=== PATIENT | female | born 1945 | race Two or more races ===

== ENCOUNTER 2021-06-10 11:43 | Inpatient (IN) | payer MEDICARE, MEDICAID ==
[~2021-06-10] VITALS: Ht 157.5 cm; Wt 69.9 kg
[2021-06-10] VITALS (20 sets, daily range): BP systolic 93–120; BP diastolic 33–75
[~2021-06-10 11:43] MED LIST: DEXTROSE 50% WATER 50ML SYRINGE IV ONE; ETOMIDATE 2MG/ML 10ML VIAL IV ONE
[2021-06-10] MEDS ORDERED: ETOMIDATE 2MG/ML 10ML VIAL IV ONE (12:00)
[2021-06-10] MEDS ORDERED: ROCURONIUM BROMIDE 10MG/ML VIAL 5ML IV ONE (12:00)
[2021-06-10] MEDS ORDERED: DEXTROSE 50% WATER 50ML SYRINGE IV ONE (12:00)
[2021-06-10] MEDS ORDERED: PROPOFOL 10MG/ML 100ML 100 ML IV ONE (12:00)
[2021-06-10] MEDS ORDERED: IOHEXOL-350 100 ML BOTTLE ONE (12:05)
[2021-06-10 12:40] LABS: HEMATOCRIT. 24.1 % (36.0-48.0); HEMOGLOBIN. 7.9 g/dL (12.0-16.0); MEAN CORPUSCULAR HEMOGLOBIN 28.5 pg (28.0-32.0); MEAN CORPUSCULAR VOLUME 86.6 fL (81.0-99.0); MEAN PLATELET VOLUME 7.1 fl (7.4-10.4); PLATELET 203 x1000/uL (130-400); RED BLOOD CELL COUNT 2.78 mill/uL (4.2-5.4); RED CELL DISTRIBUTION WIDTH 14.6 % (11.6-14.6)
[2021-06-10 12:45] LABS: CHLORIDE 117 mEq/L (98-107)
[2021-06-10 12:53] LABS: ETHANOL BLOOD < 10 mg/dL
[2021-06-10 13:13] LABS: PLATELET ESTIMATE NORMAL
[2021-06-10 14:37] LABS: CLARITY URINE CLEAR (CLEAR); COLOR URINE YELLOW (YELLOW); KETONES URINE TRACE (NEGATIVE); LEUKOCYTE ESTERASE URINE NEGATIVE (NEGATIVE); NITRITE URINE NEGATIVE (NEGATIVE); OCCULT BLOOD URINE TRACE (NEGATIVE); PH URINE 5.5 (4.5-8.0); PROTEIN URINE TRACE (NEGATIVE); SPECIFIC GRAVITY URINE 1.028 (1.005-1.030); UROBILINOGEN URINE 0.2 E.U./dL (0.2-1.0)
[2021-06-10 15:04] LABS: *AMPHETAMINES SCREEN URINE NEGATIVE (NEGATIVE); *BARBITURATES SCREEN URINE NEGATIVE (NEGATIVE); CANNABINOID URINE SCREEN NEGATIVE (NEGATIVE)
[2021-06-10 15:05] LABS: *BENZODIAZEPINES SCREEN URINE NEGATIVE (NEGATIVE); *COCAINE SCREEN URINE NEGATIVE (NEGATIVE); METHADONE URINE SCREEN NEGATIVE (NEGATIVE); OPIATES URINE SCREEN NEGATIVE (NEGATIVE)
[2021-06-10 15:06] LABS: PHENCYCLIDINE URINE SCREEN NEGATIVE (NEGATIVE)
[2021-06-10] MEDS ORDERED: SODIUM CHLORIDE 0.9% 1000ML BAG (SEPSIS BOLUS) IV ONE (16:00)
[2021-06-10] MEDS ORDERED: PIPERACILLIN/TAZ 3.375G PREMIX 50 ML IV NR (16:00)
[2021-06-10] MEDS ORDERED: SODIUM CHLORIDE 0.9% 2,040 ML IV SCH (16:00)
[2021-06-10 16:08] LABS: BG BASE EXCESS -5.9 mmol/L (-2.0-2.0); BG CARBOXYHEMOGLOBIN 0.3 % (0.5-1.5); BG DEOXYHEMOGLOBIN 3.7 % (0.0-5.0); BG HCO3 ACT 19.1 mmol/L (22.0-26.0); BG METHEMOGLOBIN 0.3 % (0.0-1.5); BG OXYGEN SATURATION 96.3 % (92.0-98.5); BG OXYHEMOGLOBIN 95.7 % (94.0-97.0); BG PCO2 35.4 mmHg (35.0-45.0); BG PH 7.349 (7.350-7.450); BG PO2 90.5 mmHg (75.0-100.0); BG SAMPLE SITE RIGHT RADIAL; BG TOTAL HEMOGLOBIN 11.2 g/dL (12.0-18.0); BG VENT MODE VENT - AC
[2021-06-10] MEDS ORDERED: NOREPINEPHRINE 8MG/250ML PMX 250 ML IV PRN (17:15)
[2021-06-10] MEDS ORDERED: FENTANYL CITRATE/PF 1,000 MCG in SODIUM CHLORIDE 0.9% 80 ML IV PRN (17:30)
[2021-06-10] MEDS ORDERED: FENTANYL CITRATE 2,500 MCG in SODIUM CHLORIDE 0.9% 200 ML IV PRN (18:00)
[2021-06-10] MEDS ORDERED: ONDANSETRON HCL 4MG/2ML INJ IV PRN ×2 (20:15→21:30)
[2021-06-10] MEDS ORDERED: ACETAMINOPHEN 650MG/20.3ML UDC PO PRN (20:15)
[2021-06-10] MEDS ORDERED: DEXTROSE 50% WATER 50ML SYRINGE IV PRN (20:15)
[2021-06-10] MEDS ORDERED: NOREPINEPHRINE 8 MG in DEXTROSE 5% WATER 250 ML IV PRN (20:45)
[2021-06-10] MEDS: ENOXAPARIN 30MG/0.3ML SYR SUBCUT SCH (20:53)
[2021-06-10] MEDS: SODIUM CHLORIDE 0.45% 1,000 ML IV SCH (20:54)
[2021-06-10] MEDS: BLOOD SUGAR DIAGNOSTIC STRIP TEST SCH (20:54)
[2021-06-10] MEDS: INSULIN LISPRO 100 UNITS/ML SUBCUT SCH (20:54)
[2021-06-10] MEDS: PROPOFOL 10MG/ML 100ML 100 ML IV PRN (20:57)
[2021-06-10] MEDS ORDERED: HYDROCODONE/ACETAMINOPHEN 5/325MG TABLET PO PRN (21:30)
[2021-06-10] MEDS ORDERED: ENOXAPARIN 40MG/0.4ML SYR SUBCUT SCH (21:30)
[2021-06-10] MEDS ORDERED: ACETAMINOPHEN 325MG TABLET PO PRN (21:30)
[2021-06-10] MEDS ORDERED: NALOXONE HCL 0.4MG/ML VIAL IV PRN (22:00)
[2021-06-10] MEDS ORDERED: PIPERACILLIN/TAZOBACTAM 3.375 G in DEXTROSE 5% WATER 50 ML IV NR (23:00)
[2021-06-11] VITALS (66 sets, daily range): BP systolic 83–131; BP diastolic 27–83
[2021-06-11] MEDS ORDERED: VANCOMYCIN 1 G PREMIX 200 ML IV NR
[2021-06-11 01:07] LABS: CREATINE KINASE MB FRACTION 18.4 ng/mL (0.5-3.6)
[2021-06-11] MEDS: PIPERACILLIN/TAZOBACTAM 3.375 G in DEXTROSE 5% WATER 50 ML IV SCH ×3 (05:14→21:12)
[2021-06-11] MEDS: PROPOFOL 10MG/ML 100ML 100 ML IV PRN ×2 (05:30→20:23)
[2021-06-11 05:47] LABS: HEMATOCRIT. 22.1 % (36.0-48.0); HEMOGLOBIN. 7.3 g/dL (12.0-16.0); MEAN CORPUSCULAR HEMOGLOBIN 28.3 pg (28.0-32.0); MEAN CORPUSCULAR VOLUME 86.1 fL (81.0-99.0); MEAN PLATELET VOLUME 7.2 fl (7.4-10.4); PLATELET 188 x1000/uL (130-400); RED BLOOD CELL COUNT 2.57 mill/uL (4.2-5.4); RED CELL DISTRIBUTION WIDTH 14.6 % (11.6-14.6)
[2021-06-11 05:58] LABS: CHLORIDE 122 mEq/L (98-107)
[2021-06-11 06:09] LABS: CREATINE KINASE MB FRACTION 18.7 ng/mL (0.5-3.6)
[2021-06-11 06:18] LABS: CREATINE KINASE 1640 IU/L (26-192)
[2021-06-11] MEDS: BLOOD SUGAR DIAGNOSTIC STRIP TEST SCH ×4 (07:50→21:10)
[2021-06-11] MEDS: INSULIN LISPRO 100 UNITS/ML SUBCUT SCH ×4 (08:20→21:00)
[2021-06-11] MEDS: PANTOPRAZOLE SODIUM 40 MG/VIAL IV SCH (09:25)
[2021-06-11] MEDS: SODIUM CHLORIDE 0.45% 1,000 ML IV SCH (09:25)
[2021-06-11 10:27] LABS: BG BASE EXCESS -6.1 mmol/L (-2.0-2.0); BG CARBOXYHEMOGLOBIN 0.5 % (0.5-1.5); BG DEOXYHEMOGLOBIN 1.7 % (0.0-5.0); BG FRACTION INSPIRED OXYGEN 45; BG HCO3 ACT 18.5 mmol/L (22.0-26.0); BG METHEMOGLOBIN 0.1 % (0.0-1.5); BG OXYGEN SATURATION 98.3 % (92.0-98.5); BG OXYHEMOGLOBIN 97.7 % (94.0-97.0); BG PCO2 32.5 mmHg (35.0-45.0); BG PH 7.373 (7.350-7.450); BG PO2 117.5 mmHg (75.0-100.0); BG SAMPLE SITE RIGHT RADIAL; BG TOTAL HEMOGLOBIN 7.3 g/dL (12.0-18.0); BG VENT MODE VENT - AC
[2021-06-11 11:01] LABS: PLATELET ESTIMATE NORMAL
[2021-06-11 12:05] LABS: TOTAL IRON BINDING CAPACITY 214 ug/dL (250-450)
[2021-06-11] MEDS ORDERED: CARV25TA47 PO (12:13)
[2021-06-11] MEDS ORDERED: TICA60TA PO (12:14)
[2021-06-11] MEDS ORDERED: SIMV-46 PO (12:14)
[2021-06-11] MEDS ORDERED: HYDR-4134 PO (12:14)
[2021-06-11] MEDS ORDERED: ASPI-1497 PO (12:14)
[2021-06-11] MEDS ORDERED: LOSA25TA26 PO (12:14)
[2021-06-11] MEDS ORDERED: AMLO10TA80 PO (12:14)
[2021-06-11] MEDS ORDERED: INSU100I28 SQ (12:14)
[2021-06-11] MEDS ORDERED: CHOL400D7 PO (12:14)
[2021-06-11] MEDS: DEXT 5%/0.45% NACL 1000ML 1,000 ML IV SCH (13:59)
[2021-06-11] MEDS: THIAMINE HCL 100MG TABLET PO SCH (18:27)
[2021-06-11] MEDS: ENOXAPARIN 30MG/0.3ML SYR SUBCUT SCH (21:11)
[2021-06-11] MEDS: VANCOMYCIN 750 MG PREMIX 150 ML IV SCH (23:56)
[2021-06-12] VITALS (74 sets, daily range): BP systolic 97–155; BP diastolic 42–87
[2021-06-12] MEDS: DEXT 5%/0.45% NACL 1000ML 1,000 ML IV SCH ×2 (03:24→16:21)
[2021-06-12] MEDS: PROPOFOL 10MG/ML 100ML 100 ML IV PRN (03:30)
[2021-06-12 05:34] LABS: MEAN CORPUSCULAR HEMOGLOBIN 28.1 pg (28.0-32.0); MEAN PLATELET VOLUME 7.3 fl (7.4-10.4); PLATELET 158 x1000/uL (130-400); RED BLOOD CELL COUNT 2.47 mill/uL (4.2-5.4); RED CELL DISTRIBUTION WIDTH 14.2 % (11.6-14.6)
[2021-06-12 05:47] LABS: PROTHROMBIN TIME 10.5 sec (9.6-11.0)
[2021-06-12 05:51] LABS: HEMOGLOBIN. 6.9 g/dL (12.0-16.0)
[2021-06-12] MEDS: PIPERACILLIN/TAZOBACTAM 3.375 G in DEXTROSE 5% WATER 50 ML IV SCH ×3 (06:16→21:11)
[2021-06-12] MEDS ORDERED: POTASSIUM CHLORIDE 20MEQ/PACKET NG SCH (06:30)
[2021-06-12] MEDS: BLOOD SUGAR DIAGNOSTIC STRIP TEST SCH ×4 (07:05→21:51)
[2021-06-12] MEDS: INSULIN LISPRO 100 UNITS/ML SUBCUT SCH ×4 (07:09→21:58)
[2021-06-12] MEDS: THIAMINE HCL 100MG TABLET PO SCH (08:33)
[2021-06-12] MEDS: PANTOPRAZOLE SODIUM 40 MG/VIAL IV SCH ×2 (08:33→17:48)
[2021-06-12] MEDS: IPRATROPIUM/ALBUTEROL 0.5-3(2.5)MG/3ML NEB HHN PRN ×2 (08:36→16:18)
[2021-06-12 10:36] LABS: BG BASE EXCESS -6.4 mmol/L (-2.0-2.0); BG CARBOXYHEMOGLOBIN 0.3 % (0.5-1.5); BG FRACTION INSPIRED OXYGEN 40; BG METHEMOGLOBIN 0.5 % (0.0-1.5); BG OXYHEMOGLOBIN 97.2 % (94.0-97.0); BG PCO2 30.8 mmHg (35.0-45.0); BG PH 7.384 (7.350-7.450); BG PO2 122.5 mmHg (75.0-100.0); BG SAMPLE SITE RIGHT RADIAL; BG TOTAL HEMOGLOBIN 7.5 g/dL (12.0-18.0); BG VENT MODE VENT - AC
[2021-06-12] MEDS: FERROUS SULFATE 325MG TABLET PO SCH ×2 (12:34→17:48)
[2021-06-12 13:29] LABS: BG BASE EXCESS -7.2 mmol/L (-2.0-2.0); BG CARBOXYHEMOGLOBIN 0.3 % (0.5-1.5); BG DEOXYHEMOGLOBIN 2.7 % (0.0-5.0); BG FRACTION INSPIRED OXYGEN 40; BG HCO3 ACT 17.2 mmol/L (22.0-26.0); BG METHEMOGLOBIN 0.1 % (0.0-1.5); BG OXYGEN SATURATION 97.3 % (92.0-98.5); BG OXYHEMOGLOBIN 96.9 % (94.0-97.0); BG PCO2 30.5 mmHg (35.0-45.0); BG PH 7.369 (7.350-7.450); BG PO2 100.4 mmHg (75.0-100.0); BG SAMPLE SITE LEFT RADIAL; BG VENT MODE VENT - CPAP
[2021-06-12 15:24] LABS: PLATELET ESTIMATE NORMAL
[2021-06-12 15:45] LABS: HEMATOCRIT 25.9 % (36.0-48.0); HEMOGLOBIN 8.5 g/dL (12.0-16.0)
[2021-06-12] MEDS: ACETYLCYSTEINE 100MG/ML 10% VIAL 4ML INH SCH (16:18)
[2021-06-12] MEDS: VANCOMYCIN 750 MG PREMIX 150 ML IV SCH (23:53)
[2021-06-13] VITALS (43 sets, daily range): BP systolic 90–171; BP diastolic 24–83
[2021-06-13] MEDS: IPRATROPIUM/ALBUTEROL 0.5-3(2.5)MG/3ML NEB HHN PRN ×5 (00:52→20:24)
[2021-06-13] MEDS: ACETYLCYSTEINE 100MG/ML 10% VIAL 4ML INH SCH ×4 (00:52→20:23)
[2021-06-13 05:42] LABS: HEMATOCRIT. 24.4 % (36.0-48.0); HEMOGLOBIN. 8.1 g/dL (12.0-16.0); MEAN CORPUSCULAR HEMOGLOBIN 28.8 pg (28.0-32.0); MEAN CORPUSCULAR VOLUME 86.6 fL (81.0-99.0); MEAN PLATELET VOLUME 7.2 fl (7.4-10.4); PLATELET 166 x1000/uL (130-400); RED BLOOD CELL COUNT 2.82 mill/uL (4.2-5.4); RED CELL DISTRIBUTION WIDTH 14.5 % (11.6-14.6)
[2021-06-13] MEDS: DEXT 5%/0.45% NACL 1000ML 1,000 ML IV SCH (06:23)
[2021-06-13] MEDS: PIPERACILLIN/TAZOBACTAM 3.375 G in DEXTROSE 5% WATER 50 ML IV SCH ×3 (06:23→21:35)
[2021-06-13] MEDS: INSULIN LISPRO 100 UNITS/ML SUBCUT SCH ×4 (07:09→22:06)
[2021-06-13] MEDS: BLOOD SUGAR DIAGNOSTIC STRIP TEST SCH ×4 (07:13→21:55)
[2021-06-13 07:47] LABS: PLATELET ESTIMATE NORMAL
[2021-06-13] MEDS: PANTOPRAZOLE SODIUM 40 MG/VIAL IV SCH ×2 (08:01→17:06)
[2021-06-13] MEDS: FERROUS SULFATE 325MG TABLET PO SCH ×3 (08:01→17:30)
[2021-06-13] MEDS: THIAMINE HCL 100MG TABLET PO SCH (08:02)
[2021-06-13] MEDS ORDERED: CALCIUM GLUCONATE 1,000 MG in DEXT 5% WATER 90 ML IV ONE (11:00)
[2021-06-13] MEDS ORDERED: FUROSEMIDE 40MG/4ML VIAL IVP NR (11:45)
[2021-06-13] MEDS ORDERED: CALCIUM GLUCONATE 1GM PREMIX 50 ML IV NR (13:00)
[2021-06-13 13:37] LABS: BG BASE EXCESS -8.9 mmol/L (-2.0-2.0); BG CARBOXYHEMOGLOBIN 0.3 % (0.5-1.5); BG DEOXYHEMOGLOBIN 1.5 % (0.0-5.0); BG FRACTION INSPIRED OXYGEN 40; BG HCO3 ACT 15.8 mmol/L (22.0-26.0); BG METHEMOGLOBIN 0.4 % (0.0-1.5); BG OXYGEN SATURATION 98.5 % (92.0-98.5); BG OXYHEMOGLOBIN 97.8 % (94.0-97.0); BG PCO2 29.9 mmHg (35.0-45.0); BG PH 7.342 (7.350-7.450); BG PO2 147.7 mmHg (75.0-100.0); BG SAMPLE SITE RIGHT RADIAL; BG VENT MODE VENT - CPAP
[2021-06-13] MEDS ORDERED: SODIUM BICARBONATE 8.4% 1 MEQ/ML 50ML SYR IV NR (14:00)
[2021-06-13] MEDS: CEFAZOLIN 2,000 MG in DEXT 5% WATER 100 ML IV SCH ×2 (15:58→21:34)
[2021-06-13] MEDS ORDERED: HYDRALAZINE 20MG/ML VIAL IV PRN (16:30)
[2021-06-13] MEDS ORDERED: VANCOMYCIN 750 MG PREMIX 150 ML IV SCH (18:00)
[2021-06-14] VITALS (45 sets, daily range): BP systolic 117–158; BP diastolic 47–89
[2021-06-14] MEDS: PIPERACILLIN/TAZOBACTAM 3.375 G in DEXTROSE 5% WATER 50 ML IV SCH ×3 (05:42→21:04)
[2021-06-14] MEDS: CEFAZOLIN 2,000 MG in DEXT 5% WATER 100 ML IV SCH ×3 (05:42→21:04)
[2021-06-14 06:24] LABS: HEMATOCRIT. 24.1 % (36.0-48.0); MEAN CORPUSCULAR HEMOGLOBIN 28.7 pg (28.0-32.0); MEAN CORPUSCULAR VOLUME 86.4 fL (81.0-99.0); MEAN PLATELET VOLUME 7.2 fl (7.4-10.4); PLATELET 171 x1000/uL (130-400); RED CELL DISTRIBUTION WIDTH 14.5 % (11.6-14.6)
[2021-06-14] MEDS: BLOOD SUGAR DIAGNOSTIC STRIP TEST SCH ×4 (07:14→21:03)
[2021-06-14] MEDS: INSULIN LISPRO 100 UNITS/ML SUBCUT SCH ×4 (07:17→21:05)
[2021-06-14] MEDS: FERROUS SULFATE 325MG TABLET PO SCH ×3 (08:35→18:12)
[2021-06-14] MEDS: PANTOPRAZOLE SODIUM 40 MG/VIAL IV SCH ×2 (08:35→18:12)
[2021-06-14] MEDS: THIAMINE HCL 100MG TABLET PO SCH (08:36)
[2021-06-14 08:38] LABS: BG BASE EXCESS -1.3 mmol/L (-2.0-2.0); BG CARBOXYHEMOGLOBIN 0.3 % (0.5-1.5); BG DEOXYHEMOGLOBIN 2.1 % (0.0-5.0); BG FRACTION INSPIRED OXYGEN 30; BG HCO3 ACT 22.5 mmol/L (22.0-26.0); BG METHEMOGLOBIN 0.1 % (0.0-1.5); BG OXYGEN SATURATION 97.9 % (92.0-98.5); BG OXYHEMOGLOBIN 97.5 % (94.0-97.0); BG PH 7.439 (7.350-7.450); BG PO2 110.9 mmHg (75.0-100.0); BG SAMPLE SITE RIGHT RADIAL; BG TOTAL HEMOGLOBIN 8.5 g/dL (12.0-18.0); BG TOTAL RESPIRATORY RATE 19 b/min; BG VENT MODE VENT - AC
[2021-06-14] MEDS: ACETYLCYSTEINE 100MG/ML 10% VIAL 4ML INH SCH ×2 (08:46→16:25)
[2021-06-14] MEDS: IPRATROPIUM/ALBUTEROL 0.5-3(2.5)MG/3ML NEB HHN PRN ×2 (08:46→16:25)
[2021-06-14 10:02] LABS: BG BASE EXCESS 0.2 mmol/L (-2.0-2.0); BG CARBOXYHEMOGLOBIN 0.3 % (0.5-1.5); BG DEOXYHEMOGLOBIN 2.2 % (0.0-5.0); BG HCO3 ACT 24.2 mmol/L (22.0-26.0); BG METHEMOGLOBIN 0.2 % (0.0-1.5); BG OXYGEN SATURATION 97.8 % (92.0-98.5); BG OXYHEMOGLOBIN 97.3 % (94.0-97.0); BG PCO2 36.5 mmHg (35.0-45.0); BG PH 7.439 (7.350-7.450); BG PO2 109.8 mmHg (75.0-100.0); BG SAMPLE SITE RIGHT RADIAL; BG TOTAL HEMOGLOBIN 9.3 g/dL (12.0-18.0); BG VENT MODE VENT - CPAP
[2021-06-14] MEDS: LOSARTAN POTASSIUM 25 MG TABLET PO SCH (14:11)
[2021-06-14 14:36] LABS: BG BASE EXCESS -1.2 mmol/L (-2.0-2.0); BG CARBOXYHEMOGLOBIN 0.3 % (0.5-1.5); BG DEOXYHEMOGLOBIN 1.8 % (0.0-5.0); BG FRACTION INSPIRED OXYGEN 40; BG HCO3 ACT 22.9 mmol/L (22.0-26.0); BG METHEMOGLOBIN 0.1 % (0.0-1.5); BG OXYGEN SATURATION 98.2 % (92.0-98.5); BG OXYHEMOGLOBIN 97.8 % (94.0-97.0); BG PCO2 35.3 mmHg (35.0-45.0); BG PH 7.429 (7.350-7.450); BG PO2 125.3 mmHg (75.0-100.0); BG SAMPLE SITE RIGHT RADIAL; BG TOTAL HEMOGLOBIN 8.7 g/dL (12.0-18.0); BG VENT MODE COOL AEROSOL
[2021-06-14 16:13] LABS: PLATELET ESTIMATE NORMAL
[2021-06-14] MEDS ORDERED: FUROSEMIDE 20MG/2ML VIAL IVP NR (16:43)
[2021-06-14 19:22] LABS: HEMATOCRIT 24.9 % (36.0-48.0); HEMOGLOBIN 8.4 g/dL (12.0-16.0)
[2021-06-14] MEDS: CARVEDILOL 3.125 MG TABLET PO SCH (21:03)
[2021-06-14] MEDS: AMLODIPINE 5MG TABLET PO SCH (21:03)
[2021-06-14] MEDS: ACETAMINOPHEN 325MG TABLET PO PRN (21:07)
[2021-06-15] VITALS (39 sets, daily range): BP systolic 105–166; BP diastolic 45–80
[2021-06-15] MEDS: ACETYLCYSTEINE 100MG/ML 10% VIAL 4ML INH SCH (00:25)
[2021-06-15] MEDS: IPRATROPIUM/ALBUTEROL 0.5-3(2.5)MG/3ML NEB HHN PRN (00:25)
[2021-06-15 01:16] LABS: HEMATOCRIT 24.4 % (36.0-48.0); HEMOGLOBIN 8.3 g/dL (12.0-16.0)
[2021-06-15] MEDS: CEFAZOLIN 2,000 MG in DEXT 5% WATER 100 ML IV SCH ×3 (05:10→21:27)
[2021-06-15] MEDS: PIPERACILLIN/TAZOBACTAM 3.375 G in DEXTROSE 5% WATER 50 ML IV SCH ×3 (05:10→21:28)
[2021-06-15 06:17] LABS: HEMATOCRIT. 26.3 % (36.0-48.0); MEAN CORPUSCULAR VOLUME 84.9 fL (81.0-99.0); MEAN PLATELET VOLUME 7.1 fl (7.4-10.4); PLATELET 204 x1000/uL (130-400); RED BLOOD CELL COUNT 3.09 mill/uL (4.2-5.4); RED CELL DISTRIBUTION WIDTH 14.5 % (11.6-14.6)
[2021-06-15] MEDS: BLOOD SUGAR DIAGNOSTIC STRIP TEST SCH ×4 (07:50→20:23)
[2021-06-15] MEDS: INSULIN LISPRO 100 UNITS/ML SUBCUT SCH ×4 (08:20→20:23)
[2021-06-15 08:24] LABS: BG BASE EXCESS 2.5 mmol/L (-2.0-2.0); BG CARBOXYHEMOGLOBIN 0.3 % (0.5-1.5); BG DEOXYHEMOGLOBIN 4.1 % (0.0-5.0); BG FRACTION INSPIRED OXYGEN 21; BG HCO3 ACT 25.9 mmol/L (22.0-26.0); BG METHEMOGLOBIN 0.2 % (0.0-1.5); BG OXYGEN SATURATION 95.9 % (92.0-98.5); BG OXYHEMOGLOBIN 95.4 % (94.0-97.0); BG PCO2 35.2 mmHg (35.0-45.0); BG PH 7.485 (7.350-7.450); BG PO2 75.3 mmHg (75.0-100.0); BG SAMPLE SITE LEFT RADIAL; BG TOTAL HEMOGLOBIN 9.6 g/dL (12.0-18.0); BG VENT MODE ROOM AIR
[2021-06-15] MEDS ORDERED: POTASSIUM CHLORIDE 20MEQ/PACKET PO SCH (08:30)
[2021-06-15] MEDS: FERROUS SULFATE 325MG TABLET PO SCH ×3 (10:34→18:10)
[2021-06-15] MEDS: AMLODIPINE 5MG TABLET PO SCH ×2 (10:34→20:22)
[2021-06-15] MEDS: PANTOPRAZOLE SODIUM 40 MG/VIAL IV SCH ×3 (10:34→20:22)
[2021-06-15] MEDS: CARVEDILOL 3.125 MG TABLET PO SCH ×2 (10:34→20:23)
[2021-06-15] MEDS: THIAMINE HCL 100MG TABLET PO SCH (10:34)
[2021-06-15] MEDS: LOSARTAN POTASSIUM 25 MG TABLET PO SCH (10:35)
[2021-06-15 11:44] LABS: PLATELET ESTIMATE NORMAL
[2021-06-15] MEDS ORDERED: [UNRECOGNIZED DRUG - REMARK] XX SCH (13:00)
[2021-06-15 16:36] LABS: HEMOGLOBIN 9.9 g/dL (12.0-16.0)
[2021-06-15 23:42] LABS: HEMATOCRIT 27.3 % (36.0-48.0); HEMOGLOBIN 9.3 g/dL (12.0-16.0)
[2021-06-16] VITALS (49 sets, daily range): BP systolic 119–163; BP diastolic 50–89
[2021-06-16] MEDS: ACETYLCYSTEINE 100MG/ML 10% VIAL 4ML INH SCH (00:27)
[2021-06-16] MEDS: IPRATROPIUM/ALBUTEROL 0.5-3(2.5)MG/3ML NEB HHN SCH ×3 (00:27→20:16)
[2021-06-16] MEDS: PIPERACILLIN/TAZOBACTAM 3.375 G in DEXTROSE 5% WATER 50 ML IV SCH ×3 (05:48→21:50)
[2021-06-16] MEDS: CEFAZOLIN 2,000 MG in DEXT 5% WATER 100 ML IV SCH ×3 (05:48→22:27)
[2021-06-16 06:00] LABS: MEAN CORPUSCULAR HEMOGLOBIN 28.4 pg (28.0-32.0); MEAN CORPUSCULAR VOLUME 85.5 fL (81.0-99.0); PLATELET 206 x1000/uL (130-400); RED BLOOD CELL COUNT 3.16 mill/uL (4.2-5.4); RED CELL DISTRIBUTION WIDTH 14.5 % (11.6-14.6)
[2021-06-16 06:07] LABS: PROTHROMBIN TIME 10.3 sec (9.6-11.0)
[2021-06-16] MEDS: BLOOD SUGAR DIAGNOSTIC STRIP TEST SCH ×4 (07:50→21:36)
[2021-06-16] MEDS: INSULIN LISPRO 100 UNITS/ML SUBCUT SCH ×5 (08:20→21:53)
[2021-06-16] MEDS: FERROUS SULFATE 325MG TABLET PO SCH ×3 (08:20→18:47)
[2021-06-16 08:40] LABS: BG BASE EXCESS 0.9 mmol/L (-2.0-2.0); BG DEOXYHEMOGLOBIN 2.1 % (0.0-5.0); BG FRACTION INSPIRED OXYGEN 28; BG HCO3 ACT 24.7 mmol/L (22.0-26.0); BG METHEMOGLOBIN 0.2 % (0.0-1.5); BG OXYGEN SATURATION 97.9 % (92.0-98.5); BG OXYHEMOGLOBIN 97.7 % (94.0-97.0); BG PCO2 35.9 mmHg (35.0-45.0); BG PH 7.455 (7.350-7.450); BG PO2 106.7 mmHg (75.0-100.0); BG SAMPLE SITE LEFT RADIAL; BG TOTAL HEMOGLOBIN 9.3 g/dL (12.0-18.0); BG VENT MODE NASAL CANNULA
[2021-06-16] MEDS: LOSARTAN POTASSIUM 25 MG TABLET PO SCH (09:00)
[2021-06-16] MEDS: CARVEDILOL 3.125 MG TABLET PO SCH ×2 (09:00→21:51)
[2021-06-16] MEDS: PANTOPRAZOLE SODIUM 40 MG/VIAL IV SCH ×3 (09:00→21:51)
[2021-06-16] MEDS: AMLODIPINE 5MG TABLET PO SCH ×2 (09:00→21:51)
[2021-06-16] MEDS: THIAMINE HCL 100MG TABLET PO SCH (09:00)
[2021-06-16 10:15] LABS: PLATELET ESTIMATE NORMAL
[2021-06-16] MEDS ORDERED: INFLUENZA VACCINE 05/PF 0.5 ML SYRINGE IM ONE (13:00)
[2021-06-16] MEDS ORDERED: CALCIUM GLUCONATE 1GM PREMIX 50 ML IV SCH (14:00)
[2021-06-16 14:59] LABS: T4 FREE 1.48 ng/dL (0.76-1.46)
[2021-06-16] MEDS ORDERED: FENTANYL CITRATE/PF 50MCG/ML 2ML VIAL ONE (15:36)
[2021-06-16] MEDS ORDERED: MIDAZOLAM HCL 5 MG/5 ML VIAL ONE (15:36)
[2021-06-16] MEDS ORDERED: MIDAZOLAM HCL 5 MG/5 ML VIAL IV PRN (15:51)
[2021-06-16] MEDS: ATORVASTATIN CALCIUM 40MG TABLET PO SCH (21:54)
[2021-06-17] VITALS (17 sets, daily range): BP systolic 129–172; BP diastolic 46–93
[2021-06-17] MEDS: IPRATROPIUM/ALBUTEROL 0.5-3(2.5)MG/3ML NEB HHN SCH ×4 (00:13→13:11)
[2021-06-17] MEDS: ACETYLCYSTEINE 100MG/ML 10% VIAL 4ML INH SCH ×2 (00:13→10:08)
[2021-06-17] MEDS: CEFAZOLIN 2,000 MG in DEXT 5% WATER 100 ML IV SCH ×3 (05:23→21:45)
[2021-06-17] MEDS: PIPERACILLIN/TAZOBACTAM 3.375 G in DEXTROSE 5% WATER 50 ML IV SCH ×3 (06:24→21:45)
[2021-06-17] MEDS: BLOOD SUGAR DIAGNOSTIC STRIP TEST SCH ×4 (06:25→21:40)
[2021-06-17 06:42] LABS: CHLORIDE 112 mEq/L (98-107)
[2021-06-17 06:44] LABS: HEMATOCRIT. 25.1 % (36.0-48.0); HEMOGLOBIN. 8.3 g/dL (12.0-16.0); MEAN CORPUSCULAR HEMOGLOBIN 28.2 pg (28.0-32.0); MEAN CORPUSCULAR VOLUME 85.2 fL (81.0-99.0); MEAN PLATELET VOLUME 7.2 fl (7.4-10.4); PLATELET 194 x1000/uL (130-400); RED BLOOD CELL COUNT 2.95 mill/uL (4.2-5.4); RED CELL DISTRIBUTION WIDTH 14.4 % (11.6-14.6)
[2021-06-17 08:54] LABS: PLATELET ESTIMATE NORMAL
[2021-06-17] MEDS: LOSARTAN POTASSIUM 25 MG TABLET PO SCH (09:11)
[2021-06-17] MEDS: THIAMINE HCL 100MG TABLET PO SCH (09:11)
[2021-06-17] MEDS: CARVEDILOL 3.125 MG TABLET PO SCH ×2 (09:11→21:25)
[2021-06-17] MEDS: AMLODIPINE 5MG TABLET PO SCH ×2 (09:11→21:25)
[2021-06-17] MEDS: FERROUS SULFATE 325MG TABLET PO SCH ×3 (09:11→17:40)
[2021-06-17] MEDS: PANTOPRAZOLE SODIUM 40 MG/VIAL IV SCH ×2 (09:12→21:24)
[2021-06-17] MEDS: INSULIN LISPRO 100 UNITS/ML SUBCUT SCH ×4 (09:30→22:10)
[2021-06-17] MEDS: ATORVASTATIN CALCIUM 40MG TABLET PO SCH (21:25)
[2021-06-18] VITALS: BP 149/51
[2021-06-18] MEDS: IPRATROPIUM/ALBUTEROL 0.5-3(2.5)MG/3ML NEB HHN SCH ×6 (00:19→20:14)
[2021-06-18 01:37] LABS: HEMATOCRIT 25.7 % (36.0-48.0); HEMOGLOBIN 8.3 g/dL (12.0-16.0)
[2021-06-18 04:00] VITALS: BP 139/52
[2021-06-18] MEDS: CEFAZOLIN 2,000 MG in DEXT 5% WATER 100 ML IV SCH ×3 (05:46→21:03)
[2021-06-18] MEDS: BLOOD SUGAR DIAGNOSTIC STRIP TEST SCH ×4 (06:46→21:04)
[2021-06-18 08:00] VITALS: BP 138/60
[2021-06-18] MEDS: THIAMINE HCL 100MG TABLET PO SCH (09:14)
[2021-06-18] MEDS: LOSARTAN POTASSIUM 25 MG TABLET PO SCH (09:15)
[2021-06-18] MEDS: AMLODIPINE 5MG TABLET PO SCH ×2 (09:15→21:02)
[2021-06-18] MEDS: FERROUS SULFATE 325MG TABLET PO SCH ×3 (09:15→17:28)
[2021-06-18] MEDS: CARVEDILOL 3.125 MG TABLET PO SCH ×2 (09:15→21:02)
[2021-06-18] MEDS: PANTOPRAZOLE SODIUM 40 MG/VIAL IV SCH ×2 (09:15→21:01)
[2021-06-18] MEDS: INSULIN LISPRO 100 UNITS/ML SUBCUT SCH ×4 (09:16→21:03)
[2021-06-18 09:46] LABS: BASOPHILS % 0.4 % (0.0-2.0); EOSINOPHILS % 14.8 % (0.0-5.0); HEMATOCRIT. 26.1 % (36.0-48.0); HEMOGLOBIN. 8.6 g/dL (12.0-16.0); LYMPHOCYTES % 7.6 % (20.0-50.0); MEAN CORPUSCULAR HEMOGLOBIN 28.1 pg (28.0-32.0); MEAN CORPUSCULAR VOLUME 85.7 fL (81.0-99.0); MEAN PLATELET VOLUME 7.2 fl (7.4-10.4); MONOCYTES % 7.4 % (2.0-8.0); NEUTROPHILS % 69.8 % (40.0-76.0); PLATELET 214 x1000/uL (130-400); RED BLOOD CELL COUNT 3.05 mill/uL (4.2-5.4)
[2021-06-18 12:00] VITALS: BP 138/48
[2021-06-18 13:47] LABS: HEMATOCRIT 26.5 % (36.0-48.0); HEMOGLOBIN 8.6 g/dL (12.0-16.0)
[2021-06-18 16:00] VITALS: BP 156/62
[2021-06-18 20:00] VITALS: BP 148/52
[2021-06-18] MEDS: ATORVASTATIN CALCIUM 40MG TABLET PO SCH (21:02)
[2021-06-19] VITALS: BP 142/51
[2021-06-19 01:30] LABS: HEMOGLOBIN 7.9 g/dL (12.0-16.0)
[2021-06-19 04:00] VITALS: BP 134/52
[2021-06-19] MEDS: ACETAMINOPHEN 325MG TABLET PO PRN (04:29)
[2021-06-19] MEDS: CEFAZOLIN 2,000 MG in DEXT 5% WATER 100 ML IV SCH ×3 (05:03→22:04)
[2021-06-19] MEDS: BLOOD SUGAR DIAGNOSTIC STRIP TEST SCH ×4 (06:28→21:00)
[2021-06-19 06:47] LABS: HEMATOCRIT 24.1 % (36.0-48.0); HEMOGLOBIN 8.1 g/dL (12.0-16.0)
[2021-06-19] MEDS: IPRATROPIUM/ALBUTEROL 0.5-3(2.5)MG/3ML NEB HHN SCH ×4 (07:30→20:55)
[2021-06-19 08:00] VITALS: BP 128/62
[2021-06-19] MEDS: INSULIN LISPRO 100 UNITS/ML SUBCUT SCH ×4 (10:02→22:01)
[2021-06-19] MEDS: PANTOPRAZOLE SODIUM 40 MG/VIAL IV SCH ×2 (10:03→22:03)
[2021-06-19] MEDS: AMLODIPINE 5MG TABLET PO SCH ×2 (10:03→21:00)
[2021-06-19] MEDS: THIAMINE HCL 100MG TABLET PO SCH (10:03)
[2021-06-19] MEDS: LOSARTAN POTASSIUM 25 MG TABLET PO SCH (10:03)
[2021-06-19] MEDS: CARVEDILOL 3.125 MG TABLET PO SCH ×2 (10:03→21:00)
[2021-06-19] MEDS: FERROUS SULFATE 325MG TABLET PO SCH ×3 (10:03→17:44)
[2021-06-19 12:00] VITALS: BP 157/48
[2021-06-19 12:28] LABS: HEMOGLOBIN 8.9 g/dL (12.0-16.0)
[2021-06-19] MEDS: CHOLECALCIFEROL (D3) 1000 UNIT TABLET PO SCH (14:28)
[2021-06-19 16:02] VITALS: BP 152/52
[2021-06-19] MEDS: DIPHENHYDRAMINE 25MG CAPSULE PO PRN (17:45)
[2021-06-19 20:00] VITALS: BP 107/53
[2021-06-19] MEDS: ATORVASTATIN CALCIUM 40MG TABLET PO SCH (21:00)
[2021-06-20] VITALS (7 sets, daily range): BP systolic 135–165; BP diastolic 52–83
[2021-06-20] MEDS: IPRATROPIUM/ALBUTEROL 0.5-3(2.5)MG/3ML NEB HHN SCH ×6 (01:25→20:11)
[2021-06-20 06:29] LABS: BASOPHILS % 0.4 % (0.0-2.0); EOSINOPHILS % 10.8 % (0.0-5.0); HEMOGLOBIN. 8.6 g/dL (12.0-16.0); LYMPHOCYTES % 8.7 % (20.0-50.0); MEAN CORPUSCULAR HEMOGLOBIN 28.2 pg (28.0-32.0); MEAN PLATELET VOLUME 7.1 fl (7.4-10.4); MONOCYTES % 8.5 % (2.0-8.0); NEUTROPHILS % 71.6 % (40.0-76.0); PLATELET 249 x1000/uL (130-400); RED BLOOD CELL COUNT 3.06 mill/uL (4.2-5.4); RED CELL DISTRIBUTION WIDTH 14.5 % (11.6-14.6)
[2021-06-20] MEDS: BLOOD SUGAR DIAGNOSTIC STRIP TEST SCH ×4 (06:30→21:58)
[2021-06-20] MEDS: CEFAZOLIN 2,000 MG in DEXT 5% WATER 100 ML IV SCH ×3 (06:30→21:53)
[2021-06-20] MEDS: CHOLECALCIFEROL (D3) 1000 UNIT TABLET PO SCH (09:20)
[2021-06-20] MEDS: LOSARTAN POTASSIUM 25 MG TABLET PO SCH (09:20)
[2021-06-20] MEDS: THIAMINE HCL 100MG TABLET PO SCH (09:20)
[2021-06-20] MEDS: FERROUS SULFATE 325MG TABLET PO SCH ×3 (09:20→17:37)
[2021-06-20] MEDS: PANTOPRAZOLE SODIUM 40 MG/VIAL IV SCH ×2 (09:21→21:52)
[2021-06-20] MEDS: AMLODIPINE 5MG TABLET PO SCH ×2 (09:21→21:55)
[2021-06-20] MEDS: INSULIN LISPRO 100 UNITS/ML SUBCUT SCH ×4 (09:25→21:58)
[2021-06-20] MEDS: CARVEDILOL 3.125 MG TABLET PO SCH (09:27)
[2021-06-20] MEDS: DIPHENHYDRAMINE 25MG CAPSULE PO PRN (13:31)
[2021-06-20] MEDS: CARVEDILOL 6.25 MG TABLET PO SCH (21:53)
[2021-06-20] MEDS: ATORVASTATIN CALCIUM 40MG TABLET PO SCH (21:55)
[2021-06-20] MEDS: INSULIN GLARGINE UD 100 UNITS/ML SYR SUBCUT SCH (21:57)
[2021-06-21] VITALS: BP 130/50
[2021-06-21] MEDS: IPRATROPIUM/ALBUTEROL 0.5-3(2.5)MG/3ML NEB HHN SCH ×6 (00:32→19:46)
[2021-06-21 04:00] VITALS: BP 140/57
[2021-06-21] MEDS: BLOOD SUGAR DIAGNOSTIC STRIP TEST SCH ×4 (07:34→21:19)
[2021-06-21] MEDS: CEFAZOLIN 2,000 MG in DEXT 5% WATER 100 ML IV SCH ×3 (07:35→21:19)
[2021-06-21 08:00] VITALS: BP 132/49
[2021-06-21 09:11] LABS: VITAMIN D 1-25 DIHYDROXY 60.6 pg/mL (19.9-79.3)
[2021-06-21] MEDS: PANTOPRAZOLE SODIUM 40 MG/VIAL IV SCH ×2 (09:47→21:19)
[2021-06-21] MEDS: THIAMINE HCL 100MG TABLET PO SCH (09:47)
[2021-06-21] MEDS: LOSARTAN POTASSIUM 25 MG TABLET PO SCH (09:47)
[2021-06-21] MEDS: CHOLECALCIFEROL (D3) 1000 UNIT TABLET PO SCH (09:48)
[2021-06-21] MEDS: FERROUS SULFATE 325MG TABLET PO SCH ×3 (09:48→17:58)
[2021-06-21] MEDS: CARVEDILOL 6.25 MG TABLET PO SCH ×3 (09:50→21:19)
[2021-06-21] MEDS: AMLODIPINE 5MG TABLET PO SCH ×3 (09:50→21:19)
[2021-06-21] MEDS: INSULIN GLARGINE UD 100 UNITS/ML SYR SUBCUT SCH ×2 (09:56→21:23)
[2021-06-21] MEDS: INSULIN LISPRO 100 UNITS/ML SUBCUT SCH ×4 (09:56→21:20)
[2021-06-21 12:00] VITALS: BP 153/63
[2021-06-21 16:00] VITALS: BP 121/86
[2021-06-21 20:05] VITALS: BP 120/47
[2021-06-21] MEDS: ATORVASTATIN CALCIUM 40MG TABLET PO SCH ×2 (21:00→21:19)
[2021-06-22] VITALS (7 sets, daily range): BP systolic 104–158; BP diastolic 42–74
[2021-06-22] MEDS: IPRATROPIUM/ALBUTEROL 0.5-3(2.5)MG/3ML NEB HHN SCH ×5 (00:02→21:07)
[2021-06-22] MEDS: CEFAZOLIN 2,000 MG in DEXT 5% WATER 100 ML IV SCH ×3 (05:41→21:47)
[2021-06-22] MEDS: INSULIN LISPRO 100 UNITS/ML SUBCUT SCH ×4 (05:59→21:00)
[2021-06-22] MEDS: BLOOD SUGAR DIAGNOSTIC STRIP TEST SCH ×4 (05:59→21:26)
[2021-06-22 06:46] LABS: BASOPHILS % 0.4 % (0.0-2.0); EOSINOPHILS % 8.2 % (0.0-5.0); HEMATOCRIT. 25.9 % (36.0-48.0); HEMOGLOBIN. 8.6 g/dL (12.0-16.0); LYMPHOCYTES % 9.6 % (20.0-50.0); MEAN CORPUSCULAR HEMOGLOBIN 28.2 pg (28.0-32.0); MEAN PLATELET VOLUME 7.2 fl (7.4-10.4); MONOCYTES % 9.8 % (2.0-8.0); PLATELET 298 x1000/uL (130-400); RED BLOOD CELL COUNT 3.05 mill/uL (4.2-5.4); RED CELL DISTRIBUTION WIDTH 14.5 % (11.6-14.6)
[2021-06-22] MEDS: CHOLECALCIFEROL (D3) 1000 UNIT TABLET PO SCH (09:27)
[2021-06-22] MEDS: FERROUS SULFATE 325MG TABLET PO SCH ×3 (09:27→17:51)
[2021-06-22] MEDS: CARVEDILOL 6.25 MG TABLET PO SCH ×2 (09:28→21:27)
[2021-06-22] MEDS: LOSARTAN POTASSIUM 25 MG TABLET PO SCH (09:29)
[2021-06-22] MEDS: AMLODIPINE 5MG TABLET PO SCH ×2 (09:29→21:27)
[2021-06-22] MEDS: PANTOPRAZOLE SODIUM 40 MG/VIAL IV SCH ×2 (09:34→21:47)
[2021-06-22] MEDS: THIAMINE HCL 100MG TABLET PO SCH (09:40)
[2021-06-22] MEDS: INSULIN GLARGINE UD 100 UNITS/ML SYR SUBCUT SCH ×2 (10:32→21:26)
[2021-06-22] MEDS: DIPHENHYDRAMINE 25MG CAPSULE PO PRN (21:27)
[2021-06-22] MEDS: ATORVASTATIN CALCIUM 40MG TABLET PO SCH (21:27)
[2021-06-23] MEDS: IPRATROPIUM/ALBUTEROL 0.5-3(2.5)MG/3ML NEB HHN SCH ×6 (01:04→21:43)
[2021-06-23 04:00] VITALS: BP 127/48
[2021-06-23] MEDS: CEFAZOLIN 2,000 MG in DEXT 5% WATER 100 ML IV SCH ×3 (06:02→21:14)
[2021-06-23] MEDS: BLOOD SUGAR DIAGNOSTIC STRIP TEST SCH ×4 (06:02→20:44)
[2021-06-23] MEDS: INSULIN LISPRO 100 UNITS/ML SUBCUT SCH ×4 (06:18→21:16)
[2021-06-23 08:00] VITALS: BP 128/43
[2021-06-23] MEDS: CHOLECALCIFEROL (D3) 1000 UNIT TABLET PO SCH (08:43)
[2021-06-23] MEDS: FERROUS SULFATE 325MG TABLET PO SCH ×3 (08:43→17:06)
[2021-06-23] MEDS: PANTOPRAZOLE SODIUM 40 MG/VIAL IV SCH ×2 (08:43→21:15)
[2021-06-23] MEDS: CARVEDILOL 6.25 MG TABLET PO SCH ×3 (08:43→21:15)
[2021-06-23] MEDS: AMLODIPINE 5MG TABLET PO SCH ×3 (08:43→21:15)
[2021-06-23] MEDS: THIAMINE HCL 100MG TABLET PO SCH (08:43)
[2021-06-23] MEDS: LOSARTAN POTASSIUM 25 MG TABLET PO SCH (11:59)
[2021-06-23 12:00] VITALS: BP 150/47
[2021-06-23] MEDS: INSULIN GLARGINE UD 100 UNITS/ML SYR SUBCUT SCH ×2 (12:03→21:16)
[2021-06-23 16:00] VITALS: BP 136/44
[2021-06-23 20:00] VITALS: BP 124/55
[2021-06-23] MEDS: ATORVASTATIN CALCIUM 40MG TABLET PO SCH ×2 (21:00→21:15)
[2021-06-23] MEDS: DIPHENHYDRAMINE 25MG CAPSULE PO PRN (21:20)
[2021-06-24] VITALS: BP 139/45
[2021-06-24] MEDS: IPRATROPIUM/ALBUTEROL 0.5-3(2.5)MG/3ML NEB HHN SCH ×4 (01:57→21:21)
[2021-06-24 04:00] VITALS: BP 113/43
[2021-06-24] MEDS: CEFAZOLIN 2,000 MG in DEXT 5% WATER 100 ML IV SCH ×3 (05:10→23:56)
[2021-06-24] MEDS: BLOOD SUGAR DIAGNOSTIC STRIP TEST SCH ×4 (06:37→21:00)
[2021-06-24 08:00] VITALS: BP 146/54
[2021-06-24 08:53] LABS: BASOPHILS % 0.5 % (0.0-2.0); HEMATOCRIT. 25.5 % (36.0-48.0); HEMOGLOBIN. 8.8 g/dL (12.0-16.0); LYMPHOCYTES % 11.6 % (20.0-50.0); MEAN CORPUSCULAR HEMOGLOBIN 29.1 pg (28.0-32.0); MEAN PLATELET VOLUME 6.9 fl (7.4-10.4); MONOCYTES % 11.5 % (2.0-8.0); NEUTROPHILS % 65.4 % (40.0-76.0); PLATELET 332 x1000/uL (130-400); RED BLOOD CELL COUNT 3.04 mill/uL (4.2-5.4); RED CELL DISTRIBUTION WIDTH 14.6 % (11.6-14.6)
[2021-06-24] MEDS: FERROUS SULFATE 325MG TABLET PO SCH ×3 (09:30→18:15)
[2021-06-24] MEDS: THIAMINE HCL 100MG TABLET PO SCH (09:30)
[2021-06-24] MEDS: CARVEDILOL 6.25 MG TABLET PO SCH ×2 (09:30→22:18)
[2021-06-24] MEDS: CHOLECALCIFEROL (D3) 1000 UNIT TABLET PO SCH (09:30)
[2021-06-24] MEDS: PANTOPRAZOLE SODIUM 40 MG/VIAL IV SCH ×2 (09:31→22:18)
[2021-06-24] MEDS: AMLODIPINE 5MG TABLET PO SCH ×2 (09:31→22:17)
[2021-06-24] MEDS: LOSARTAN POTASSIUM 25 MG TABLET PO SCH (09:34)
[2021-06-24] MEDS: INSULIN LISPRO 100 UNITS/ML SUBCUT SCH ×4 (09:50→21:00)
[2021-06-24] MEDS: INSULIN GLARGINE UD 100 UNITS/ML SYR SUBCUT SCH ×2 (10:23→22:00)
[2021-06-24 12:00] VITALS: BP_SYST 120; BP_SYST 172; BP_DIAS 106; BP_DIAS 57
[2021-06-24 16:00] VITALS: BP_SYST 143; BP_SYST 149; BP_DIAS 59; BP_DIAS 89
[2021-06-24 20:00] VITALS: BP 141/60
[2021-06-24] MEDS: ATORVASTATIN CALCIUM 40MG TABLET PO SCH (22:17)
[2021-06-25] VITALS: BP 121/40
[2021-06-25] MEDS: IPRATROPIUM/ALBUTEROL 0.5-3(2.5)MG/3ML NEB HHN SCH ×3 (00:59→21:37)
[2021-06-25 04:00] VITALS: BP 152/54
[2021-06-25] MEDS: CEFAZOLIN 2,000 MG in DEXT 5% WATER 100 ML IV SCH ×2 (05:51→14:08)
[2021-06-25 06:59] LABS: HEMATOCRIT. 27.5 % (36.0-48.0); HEMOGLOBIN. 9.3 g/dL (12.0-16.0); MEAN CORPUSCULAR HEMOGLOBIN 28.7 pg (28.0-32.0); MEAN CORPUSCULAR VOLUME 85.1 fL (81.0-99.0); MEAN PLATELET VOLUME 6.6 fl (7.4-10.4); PLATELET 375 x1000/uL (130-400); RED BLOOD CELL COUNT 3.23 mill/uL (4.2-5.4); RED CELL DISTRIBUTION WIDTH 14.8 % (11.6-14.6)
[2021-06-25 07:06] LABS: CHLORIDE 112 mEq/L (98-107)
[2021-06-25] MEDS: BLOOD SUGAR DIAGNOSTIC STRIP TEST SCH ×4 (07:40→21:27)
[2021-06-25] MEDS: INSULIN LISPRO 100 UNITS/ML SUBCUT SCH ×4 (07:41→21:00)
[2021-06-25 08:59] VITALS: BP 142/89
[2021-06-25] MEDS: PANTOPRAZOLE SODIUM 40 MG/VIAL IV SCH (09:25)
[2021-06-25] MEDS: CHOLECALCIFEROL (D3) 1000 UNIT TABLET PO SCH (09:26)
[2021-06-25] MEDS: LOSARTAN POTASSIUM 25 MG TABLET PO SCH (09:26)
[2021-06-25] MEDS: THIAMINE HCL 100MG TABLET PO SCH (09:26)
[2021-06-25] MEDS: FERROUS SULFATE 325MG TABLET PO SCH ×4 (09:26→18:10)
[2021-06-25] MEDS: AMLODIPINE 5MG TABLET PO SCH ×2 (09:27→21:26)
[2021-06-25] MEDS: CARVEDILOL 6.25 MG TABLET PO SCH ×2 (09:28→21:26)
[2021-06-25] MEDS: INSULIN GLARGINE UD 100 UNITS/ML SYR SUBCUT SCH ×2 (09:29→21:37)
[2021-06-25 12:32] LABS: PLATELET ESTIMATE NORMAL
[2021-06-25 12:44] VITALS: BP 132/60
[2021-06-25] MEDS: PANTOPRAZOLE 40MG DR TABLET PO SCH (18:10)
[2021-06-25 20:00] VITALS: BP 128/55
[2021-06-25] MEDS: ATORVASTATIN CALCIUM 40MG TABLET PO SCH (21:26)
[2021-06-25] MEDS: LINEZOLID 600MG TABLET PO SCH (21:26)
[2021-06-26] VITALS: BP 117/51
[2021-06-26] MEDS: IPRATROPIUM/ALBUTEROL 0.5-3(2.5)MG/3ML NEB HHN SCH ×4 (01:51→21:36)
[2021-06-26 04:00] VITALS: BP 119/60
[2021-06-26] MEDS: INSULIN LISPRO 100 UNITS/ML SUBCUT SCH ×4 (06:52→21:00)
[2021-06-26] MEDS: BLOOD SUGAR DIAGNOSTIC STRIP TEST SCH ×4 (06:52→21:58)
[2021-06-26 08:00] VITALS: BP 140/63
[2021-06-26] MEDS: CHOLECALCIFEROL (D3) 1000 UNIT TABLET PO SCH (08:18)
[2021-06-26] MEDS: CARVEDILOL 6.25 MG TABLET PO SCH ×2 (08:18→21:58)
[2021-06-26] MEDS: LOSARTAN POTASSIUM 25 MG TABLET PO SCH (08:18)
[2021-06-26] MEDS: THIAMINE HCL 100MG TABLET PO SCH (08:18)
[2021-06-26] MEDS: PANTOPRAZOLE 40MG DR TABLET PO SCH ×2 (08:18→17:04)
[2021-06-26] MEDS: FERROUS SULFATE 325MG TABLET PO SCH ×3 (08:18→17:04)
[2021-06-26] MEDS: AMLODIPINE 5MG TABLET PO SCH ×2 (08:19→21:58)
[2021-06-26] MEDS: LINEZOLID 600MG TABLET PO SCH ×2 (08:19→21:58)
[2021-06-26] MEDS: INSULIN GLARGINE UD 100 UNITS/ML SYR SUBCUT SCH ×2 (09:02→22:00)
[2021-06-26 12:00] VITALS: BP 131/51
[2021-06-26 12:37] LABS: BASOPHILS % 0.4 % (0.0-2.0); EOSINOPHILS % 10.1 % (0.0-5.0); HEMATOCRIT. 27.4 % (36.0-48.0); HEMOGLOBIN. 8.9 g/dL (12.0-16.0); LYMPHOCYTES % 14.3 % (20.0-50.0); MEAN CORPUSCULAR HEMOGLOBIN 28.1 pg (28.0-32.0); MEAN CORPUSCULAR VOLUME 86.1 fL (81.0-99.0); MEAN PLATELET VOLUME 6.7 fl (7.4-10.4); MONOCYTES % 10.4 % (2.0-8.0); NEUTROPHILS % 64.8 % (40.0-76.0); PLATELET 394 x1000/uL (130-400); RED BLOOD CELL COUNT 3.19 mill/uL (4.2-5.4); RED CELL DISTRIBUTION WIDTH 14.9 % (11.6-14.6)
[2021-06-26 13:21] LABS: CHLORIDE 114 mEq/L (98-107)
[2021-06-26 16:00] VITALS: BP 146/53
[2021-06-26 20:00] VITALS: BP 145/50
[2021-06-26] MEDS: ATORVASTATIN CALCIUM 40MG TABLET PO SCH (21:58)
[2021-06-27] VITALS (7 sets, daily range): BP systolic 128–152; BP diastolic 44–72
[2021-06-27] MEDS: IPRATROPIUM/ALBUTEROL 0.5-3(2.5)MG/3ML NEB HHN SCH ×6 (00:55→22:08)
[2021-06-27] MEDS: BLOOD SUGAR DIAGNOSTIC STRIP TEST SCH ×4 (06:35→21:00)
[2021-06-27 07:28] LABS: BASOPHILS % 0.6 % (0.0-2.0); EOSINOPHILS % 12.1 % (0.0-5.0); HEMATOCRIT. 25.4 % (36.0-48.0); HEMOGLOBIN. 8.3 g/dL (12.0-16.0); LYMPHOCYTES % 15.1 % (20.0-50.0); MEAN CORPUSCULAR HEMOGLOBIN 27.8 pg (28.0-32.0); MEAN CORPUSCULAR VOLUME 84.6 fL (81.0-99.0); MONOCYTES % 11.2 % (2.0-8.0); PLATELET 355 x1000/uL (130-400); RED CELL DISTRIBUTION WIDTH 14.9 % (11.6-14.6)
[2021-06-27 07:38] LABS: CHLORIDE 113 mEq/L (98-107)
[2021-06-27] MEDS: INSULIN LISPRO 100 UNITS/ML SUBCUT SCH ×4 (07:50→23:11)
[2021-06-27] MEDS: LOSARTAN POTASSIUM 25 MG TABLET PO SCH (08:45)
[2021-06-27] MEDS: PANTOPRAZOLE 40MG DR TABLET PO SCH ×2 (08:49→17:23)
[2021-06-27] MEDS: CHOLECALCIFEROL (D3) 1000 UNIT TABLET PO SCH (08:49)
[2021-06-27] MEDS: AMLODIPINE 5MG TABLET PO SCH ×2 (08:50→23:08)
[2021-06-27] MEDS: CARVEDILOL 6.25 MG TABLET PO SCH ×2 (08:51→23:08)
[2021-06-27] MEDS: LINEZOLID 600MG TABLET PO SCH ×2 (08:51→23:06)
[2021-06-27] MEDS: THIAMINE HCL 100MG TABLET PO SCH (08:52)
[2021-06-27] MEDS: INSULIN GLARGINE UD 100 UNITS/ML SYR SUBCUT SCH ×2 (10:49→23:10)
[2021-06-27] MEDS: FERROUS SULFATE 325MG TABLET PO SCH ×3 (11:32→17:23)
[2021-06-27] MEDS: DIPHENHYDRAMINE 25MG CAPSULE PO PRN (23:07)
[2021-06-27] MEDS: ATORVASTATIN CALCIUM 40MG TABLET PO SCH (23:07)
[2021-06-28 00:19] VITALS: BP 144/41
[2021-06-28] MEDS: IPRATROPIUM/ALBUTEROL 0.5-3(2.5)MG/3ML NEB HHN SCH ×2 (01:44→04:11)
[2021-06-28 04:00] VITALS: BP 146/58
[2021-06-28 06:48] LABS: BASOPHILS % 0.6 % (0.0-2.0); EOSINOPHILS % 13.6 % (0.0-5.0); HEMATOCRIT. 28.2 % (36.0-48.0); HEMOGLOBIN. 9.1 g/dL (12.0-16.0); LYMPHOCYTES % 14.9 % (20.0-50.0); MEAN CORPUSCULAR HEMOGLOBIN 27.3 pg (28.0-32.0); MEAN CORPUSCULAR VOLUME 84.1 fL (81.0-99.0); MEAN PLATELET VOLUME 6.8 fl (7.4-10.4); MONOCYTES % 10.6 % (2.0-8.0); NEUTROPHILS % 60.3 % (40.0-76.0); PLATELET 375 x1000/uL (130-400); RED BLOOD CELL COUNT 3.35 mill/uL (4.2-5.4)
[2021-06-28] MEDS: BLOOD SUGAR DIAGNOSTIC STRIP TEST SCH ×4 (07:20→21:00)
[2021-06-28] MEDS: INSULIN LISPRO 100 UNITS/ML SUBCUT SCH ×4 (07:50→22:41)
[2021-06-28 08:00] VITALS: BP 145/63
[2021-06-28] MEDS: LOSARTAN POTASSIUM 25 MG TABLET PO SCH (09:53)
[2021-06-28] MEDS: CHOLECALCIFEROL (D3) 1000 UNIT TABLET PO SCH (09:53)
[2021-06-28] MEDS: THIAMINE HCL 100MG TABLET PO SCH (09:53)
[2021-06-28] MEDS: FERROUS SULFATE 325MG TABLET PO SCH ×3 (09:53→17:50)
[2021-06-28] MEDS: LINEZOLID 600MG TABLET PO SCH ×2 (09:54→22:38)
[2021-06-28] MEDS: AMLODIPINE 5MG TABLET PO SCH ×2 (09:54→22:37)
[2021-06-28] MEDS: CARVEDILOL 6.25 MG TABLET PO SCH ×2 (09:54→22:38)
[2021-06-28] MEDS: PANTOPRAZOLE 40MG DR TABLET PO SCH ×2 (09:54→17:00)
[2021-06-28 12:00] VITALS: BP 136/46
[2021-06-28] MEDS: INSULIN GLARGINE UD 100 UNITS/ML SYR SUBCUT SCH ×2 (12:36→22:42)
[2021-06-28 16:00] VITALS: BP 118/45
[2021-06-28] MEDS ORDERED: IPRATROPIUM/ALBUTEROL 0.5-3(2.5)MG/3ML NEB HHN PRN (16:15)
[2021-06-28] MEDS ORDERED: CEFTRIAXONE 1,000 MG in DEXTROSE 5% WATER 50 ML IV SCH (18:00)
[2021-06-28 20:00] VITALS: BP 143/55
[2021-06-28] MEDS: ATORVASTATIN CALCIUM 40MG TABLET PO SCH (22:38)
[2021-06-29 00:26] VITALS: BP 99/51
[2021-06-29 04:00] VITALS: BP 116/56
[2021-06-29] MEDS: INSULIN LISPRO 100 UNITS/ML SUBCUT SCH ×4 (07:01→21:00)
[2021-06-29] MEDS: BLOOD SUGAR DIAGNOSTIC STRIP TEST SCH ×4 (07:20→21:00)
[2021-06-29 08:25] VITALS: BP 132/58
[2021-06-29] MEDS: FERROUS SULFATE 325MG TABLET PO SCH ×3 (09:33→16:33)
[2021-06-29] MEDS: LINEZOLID 600MG TABLET PO SCH ×2 (09:34→23:09)
[2021-06-29] MEDS: CARVEDILOL 6.25 MG TABLET PO SCH ×2 (09:36→21:00)
[2021-06-29] MEDS: AMLODIPINE 5MG TABLET PO SCH ×2 (09:37→21:00)
[2021-06-29] MEDS: LOSARTAN POTASSIUM 25 MG TABLET PO SCH (09:38)
[2021-06-29] MEDS: PANTOPRAZOLE 40MG DR TABLET PO SCH ×2 (09:39→16:34)
[2021-06-29] MEDS: THIAMINE HCL 100MG TABLET PO SCH (09:40)
[2021-06-29] MEDS: CHOLECALCIFEROL (D3) 1000 UNIT TABLET PO SCH (09:41)
[2021-06-29] MEDS: INSULIN GLARGINE UD 100 UNITS/ML SYR SUBCUT SCH ×2 (10:43→23:11)
[2021-06-29 12:29] VITALS: BP 144/52
[2021-06-29 16:17] VITALS: BP 136/56
[2021-06-29] MEDS: LEVOFLOXACIN 250MG TABLET PO SCH (17:39)
[2021-06-29 20:00] VITALS: BP_SYST 110; BP_SYST 139; BP_DIAS 50; BP_DIAS 55
[2021-06-29] MEDS: ATORVASTATIN CALCIUM 40MG TABLET PO SCH (23:10)
[2021-06-30] VITALS: BP 113/52
[2021-06-30 04:00] VITALS: BP 127/73
[2021-06-30 06:04] LABS: HEMOGLOBIN. 8.8 g/dL (12.0-16.0); MEAN CORPUSCULAR HEMOGLOBIN 27.6 pg (28.0-32.0); MEAN CORPUSCULAR VOLUME 84.5 fL (81.0-99.0); MEAN PLATELET VOLUME 6.8 fl (7.4-10.4); PLATELET 349 x1000/uL (130-400); RED CELL DISTRIBUTION WIDTH 15.1 % (11.6-14.6)
[2021-06-30 06:38] LABS: CHLORIDE 111 mEq/L (98-107)
[2021-06-30] MEDS: BLOOD SUGAR DIAGNOSTIC STRIP TEST SCH ×4 (07:15→21:00)
[2021-06-30] MEDS: INSULIN LISPRO 100 UNITS/ML SUBCUT SCH ×4 (07:16→21:00)
[2021-06-30 08:29] VITALS: BP 126/48
[2021-06-30] MEDS: FERROUS SULFATE 325MG TABLET PO SCH ×3 (09:00→16:51)
[2021-06-30] MEDS: CHOLECALCIFEROL (D3) 1000 UNIT TABLET PO SCH (09:01)
[2021-06-30] MEDS: THIAMINE HCL 100MG TABLET PO SCH (09:01)
[2021-06-30] MEDS: LINEZOLID 600MG TABLET PO SCH ×2 (09:01→21:55)
[2021-06-30] MEDS: PANTOPRAZOLE 40MG DR TABLET PO SCH ×2 (09:01→16:51)
[2021-06-30] MEDS: LOSARTAN POTASSIUM 25 MG TABLET PO SCH (09:02)
[2021-06-30] MEDS: CARVEDILOL 6.25 MG TABLET PO SCH ×2 (09:02→21:55)
[2021-06-30] MEDS: AMLODIPINE 5MG TABLET PO SCH ×2 (09:03→21:56)
[2021-06-30] MEDS: INSULIN GLARGINE UD 100 UNITS/ML SYR SUBCUT SCH ×2 (10:04→22:00)
[2021-06-30] MEDS: LEVOFLOXACIN 250MG TABLET PO SCH (11:10)
[2021-06-30 12:15] VITALS: BP 104/42
[2021-06-30 12:54] LABS: PLATELET ESTIMATE NORMAL
[2021-06-30 16:29] VITALS: BP 115/49
[2021-06-30] MEDS: ATORVASTATIN CALCIUM 40MG TABLET PO SCH (21:55)
[2021-07-01] VITALS: BP 105/47
[2021-07-01] MEDS: BLOOD SUGAR DIAGNOSTIC STRIP TEST SCH ×3 (06:46→17:20)
[2021-07-01] MEDS: FERROUS SULFATE 325MG TABLET PO SCH ×3 (06:47→18:50)
[2021-07-01 08:00] VITALS: BP 141/51
[2021-07-01] MEDS: AMLODIPINE 5MG TABLET PO SCH (09:20)
[2021-07-01] MEDS: CARVEDILOL 6.25 MG TABLET PO SCH (09:20)
[2021-07-01] MEDS: LOSARTAN POTASSIUM 25 MG TABLET PO SCH (09:20)
[2021-07-01] MEDS: THIAMINE HCL 100MG TABLET PO SCH (09:20)
[2021-07-01] MEDS: CHOLECALCIFEROL (D3) 1000 UNIT TABLET PO SCH (09:21)
[2021-07-01] MEDS: PANTOPRAZOLE 40MG DR TABLET PO SCH ×2 (09:21→18:52)
[2021-07-01] MEDS: INSULIN GLARGINE UD 100 UNITS/ML SYR SUBCUT SCH (10:34)
[2021-07-01] MEDS: LEVOFLOXACIN 250MG TABLET PO SCH (10:52)
[2021-07-01 12:00] VITALS: BP 147/71
[2021-07-01] MEDS: INSULIN LISPRO 100 UNITS/ML SUBCUT SCH ×3 (12:50→18:48)
[2021-07-01] MEDS ORDERED: LINEZOLID 600MG TABLET PO SCH (14:30)
[2021-07-01 16:00] VITALS: BP 132/40
[2021-07-01 16:46] LABS: BASOPHILS % 0.6 % (0.0-2.0); EOSINOPHILS % 14.9 % (0.0-5.0); HEMATOCRIT. 31.5 % (36.0-48.0); LYMPHOCYTES % 17.2 % (20.0-50.0); MEAN CORPUSCULAR VOLUME 84.6 fL (81.0-99.0); MEAN PLATELET VOLUME 6.8 fl (7.4-10.4); MONOCYTES % 9.3 % (2.0-8.0); PLATELET 390 x1000/uL (130-400); RED BLOOD CELL COUNT 3.72 mill/uL (4.2-5.4); RED CELL DISTRIBUTION WIDTH 15.2 % (11.6-14.6)
[2021-07-01 19:55] VITALS: BP 132/40
== END 2021-07-01 20:21 | DRG 870 ==
LOC: ER 12:05 → CVICU 15:54 → EDBEDREQTM 15:58 → EDBEDREQ 15:58 → ENRESERV 17:48 → 6WST 06-17 03:35 → 6EST 06-30 19:50
PROVIDERS: ADMIT Internal Medicine; ATTEND Internal Medicine
PROC: 5A1955Z Respiratory Ventilation, Greater than 96 Consecutive Hours (ICD-10-PCS; principal; 2021-06-10)
PROC: 02HV33Z Insertion of Infusion Device into Superior Vena Cava, Percutaneous Approach (ICD-10-PCS; 2021-06-10)
PROC: B548ZZA Ultrasonography of Superior Vena Cava, Guidance (ICD-10-PCS; 2021-06-10)
PROC: 0BH17EZ Insertion of Endotracheal Airway into Trachea, Via Natural or Artificial Opening (ICD-10-PCS; 2021-06-10)
PROC: 30233N1 Transfusion of Nonautologous Red Blood Cells into Peripheral Vein, Percutaneous Approach (ICD-10-PCS; 2021-06-12)
PROC: 4A10X4Z Monitoring of Central Nervous Electrical Activity, External Approach (ICD-10-PCS; 2021-06-13)
PROC: 0DB78ZX Excision of Stomach, Pylorus, Via Natural or Artificial Opening Endoscopic, Diagnostic (ICD-10-PCS; 2021-06-16)
PROC: 05HY33Z Insertion of Infusion Device into Upper Vein, Percutaneous Approach (ICD-10-PCS; 2021-06-16)
PROC: B54MZZA Ultrasonography of Right Upper Extremity Veins, Guidance (ICD-10-PCS; 2021-06-16)
DX: A41.01 Sepsis due to Methicillin susceptible Staphylococcus aureus (principal); E43 Unspecified severe protein-calorie malnutrition; J69.0 Pneumonitis due to inhalation of food and vomit; J96.01 Acute respiratory failure with hypoxia; G93.41 Metabolic encephalopathy; K29.61 Other gastritis with bleeding; M62.82 Rhabdomyolysis; N17.9 Acute kidney failure, unspecified; D50.9 Iron deficiency anemia, unspecified; D63.8 Anemia in other chronic diseases classified elsewhere; E11.9 Type 2 diabetes mellitus without complications; E87.8 Other disorders of electrolyte and fluid balance, not elsewhere classified; F03.90 Unspecified dementia, unspecified severity, without behavioral disturbance, psychotic disturbance, mood disturbance, and anxiety; I10 Essential (primary) hypertension; R74.01 Elevation of levels of liver transaminase levels; E78.5 Hyperlipidemia, unspecified; I27.20 Pulmonary hypertension, unspecified; K44.9 Diaphragmatic hernia without obstruction or gangrene; E83.51 Hypocalcemia; Z20.822 Contact with and (suspected) exposure to COVID-19; E87.6 Hypokalemia; I25.10 Atherosclerotic heart disease of native coronary artery without angina pectoris; Z86.73 Personal history of transient ischemic attack (TIA), and cerebral infarction without residual deficits; Z79.4 Long term (current) use of insulin; Z79.899 Other long term (current) drug therapy; Z79.82 Long term (current) use of aspirin; Z79.02 Long term (current) use of antithrombotics/antiplatelets
CPT/HCPCS: 31500; 36415; 36600; 70496; 70498; 70551; 71045; 76937; 80048; 80053; 80076; 80202; 80305; 80320; 81003; 82140; 82270; 82306; 82375; 82550; 82553; 82652; 82728; 82805; 82962; 83540; 83550; 83605; 83735; 83970; 84439; 84443; 84478; 84481; 84484; 85014; 85018; 85025; 85044; 86850; 86900; 86920; 87070; 87077; 87186; 87426; 88305; 88312; 88313; 90686; 92610; 93005; 93306; 93880; 94002; 94003; 94640; 95816; 97110; 97162; 97166; 97530; 97535; 99291; C1725; C1893; C9113; J0360; J0610; J0690; J0696; J1650; J1815; J1940; J2250; J2543; J2704; J3010; J3370; J3490; J7060; J7608; P9016; Q0163; Q9967; U0003; U0005; A4315; G0480